=== PATIENT | male | born 1945 | race Caucasian/White ===

== ENCOUNTER 2017-12-12 14:48 | Inpatient (IN) | payer OTHER, MEDICARE ==
[~2017-12-12] VITALS: Ht 180.3 cm; Wt 106.2 kg
[2017-12-12 14:53] VITALS: BP 160/86
[2017-12-12] MEDS ORDERED: ASPIRIN CHILDRE81 MG PO (14:56)
[2017-12-12] MEDS ORDERED: AMLODIPINE BESYL5 MG PO (15:06)
[2017-12-12] MEDS ORDERED: NATURE'S BLEND F1 MG PO (15:11)
[2017-12-12] MEDS ORDERED: LISINOPRIL20 MG PO (15:12)
[2017-12-12] MEDS ORDERED: LEVOTHYROXINE75 MCG PO (15:12)
[2017-12-12 15:15] LABS: BASO % 0.5 % (0.0-1.0); EOS # 0.1 10*3/uL (0.0-0.4); EOS % 2.7 % (1.0-4.0); HEMATOCRIT 42.1 % (42.0-52.0); HEMOGLOBIN 14.1 g/dl (14.0-18.0); LYMPH # 0.6 10*3/uL (1.3-4.4); LYMPH % 13.6 % (27.0-41.0); MEAN CORPUSCULAR HGB 31.8 pg (27.0-31.0); MEAN CORPUSCULAR HGB CONC 33.5 g/dl (33.0-37.0); MEAN PLATELET VOLUME 9.5 fl (9.6-12.3); MONO # 0.6 10*3/uL (0.1-1.0); MONO % 13.2 % (3.0-9.0); NEUT # 3.1 10*3/uL (2.3-7.9); NEUT % 69.8 % (47.0-73.0); PLATELET COUNT AUTOMATED 181 10*3/uL (130-400); RED BLOOD COUNT 4.43 10*6/uL (4.50-5.90); RED CELL DISTRI WIDTH 13.3 % (0-14.5); WHITE BLOOD COUNT 4.4 10*3/uL (4.8-10.8)
[2017-12-12] MEDS ORDERED: METHOTREXATE2.5 M1 PO (15:15)
[2017-12-12] MEDS ORDERED: LOPRESSOR50 M1 PO (15:16)
[2017-12-12] MEDS ORDERED: OMEPRAZOLE10 MG PO (15:17)
[2017-12-12 15:24] LABS: ACT PARTIAL THROMBO TIME 21.9 SECONDS (20.8-31.5)
[2017-12-12 15:31] LABS: ALBUMIN 3.3 gm/dl (3.1-4.5); ALKALINE PHOSPHATASE 79 U/L (45-117); BUN 17 mg/dl (7-24); CHLORIDE 106 mmol/L (98-107); CREATININE 1.32 mg/dL (0.70-1.30); LIPASE 240 U/L (73-393); POTASSIUM 4.1 mmol/L (3.5-5.1); SGOT/AST 22 IU/L (3-35); SGPT/ALT 38 U/L (12-78); SODIUM 142 mmol/L (136-145); TOTAL PROTEIN 6.7 gm/dL (6.4-8.2)
[2017-12-12 15:32] LABS: TROPONIN I < 0.015 ng/ml (<0.045)
[2017-12-12 16:27] VITALS: BP 145/78
[2017-12-12 17:20] VITALS: BP 110/72
[2017-12-12 20:00] VITALS: BP 133/71
[2017-12-13] VITALS: BP 137/79
[2017-12-13 06:37] LABS: BASO % 0.4 % (0.0-1.0); EOS # 0.1 10*3/uL (0.0-0.4); HEMATOCRIT 39.3 % (42.0-52.0); HEMOGLOBIN 13.1 g/dl (14.0-18.0); LYMPH # 0.7 10*3/uL (1.3-4.4); LYMPH % 14.3 % (27.0-41.0); MEAN CELL VOLUME 95.6 fl (80.0-94.0); MEAN CORPUSCULAR HGB 31.9 pg (27.0-31.0); MEAN CORPUSCULAR HGB CONC 33.3 g/dl (33.0-37.0); MEAN PLATELET VOLUME 9.7 fl (9.6-12.3); MONO # 0.5 10*3/uL (0.1-1.0); MONO % 10.8 % (3.0-9.0); NEUT # 3.5 10*3/uL (2.3-7.9); NEUT % 72.3 % (47.0-73.0); PLATELET COUNT AUTOMATED 157 10*3/uL (130-400); RED BLOOD COUNT 4.11 10*6/uL (4.50-5.90); RED CELL DISTRI WIDTH 13.3 % (0-14.5); WHITE BLOOD COUNT 4.9 10*3/uL (4.8-10.8)
[2017-12-13 06:48] LABS: ACT PARTIAL THROMBO TIME 23.9 SECONDS (20.8-31.5); INTERNATIONAL NORM RATIO 1.1 (2.0-3.5)
[2017-12-13 06:55] LABS: ALKALINE PHOSPHATASE 71 U/L (45-117); BUN 15 mg/dl (7-24); CHLORIDE 108 mmol/L (98-107); CHOLESTEROL 173 mg/dL (<200); CREATININE 1.17 mg/dL (0.70-1.30); FREE T4 1.24 ng/dl (0.76-1.46); HDL CHOLESTEROL 45 mg/dl (40-60); LDL CHOLESTEROL 115 mg/dL (9-159); PHOSPHOROUS 2.4 mg/dL (2.5-4.9); POTASSIUM 4.1 mmol/L (3.5-5.1); SGOT/AST 21 IU/L (3-35); SGPT/ALT 34 U/L (12-78); SODIUM 142 mmol/L (136-145); TRIGLYCERIDES 64 mg/dl (<150); VLDL CHOLESTEROL 13 mg/dL (6-40)
[2017-12-13 08:00] VITALS: BP 130/67
[2017-12-13 08:33] LABS: VITAMIN D, 25-HYDROXY 48.6 ng/mL (30-100)
[2017-12-13] MEDS ORDERED: XARE20MG PO (11:34)
[2017-12-13 12:00] VITALS: BP 121/71
== END 2017-12-13 13:40 | disposition home or self-care (01) | DRG 309 ==
LOC: ED 14:48 → 4E 16:06 → EDHOLD 16:06 → 4E 16:53
PROVIDERS: Emergency Medicine; Family Medicine
DX: I48.91 Unspecified atrial fibrillation (principal); E44.0 Moderate protein-calorie malnutrition; E87.8 Other disorders of electrolyte and fluid balance, not elsewhere classified; E83.39 Other disorders of phosphorus metabolism; E83.41 Hypermagnesemia; Z79.01 Long term (current) use of anticoagulants; D53.9 Nutritional anemia, unspecified; R73.9 Hyperglycemia, unspecified; E66.09 Other obesity due to excess calories; E03.9 Hypothyroidism, unspecified; M06.9 Rheumatoid arthritis, unspecified; I10 Essential (primary) hypertension; Z79.82 Long term (current) use of aspirin; Z79.899 Other long term (current) drug therapy; Z68.32 Body mass index [BMI] 32.0-32.9, adult; Z86.718 Personal history of other venous thrombosis and embolism